=== PATIENT | male | born 1965 | race Caucasian/White ===

== ENCOUNTER → 2021-07-10 | Outpatient (CLI) | payer OTHER | LOC: HEART 5 11:10 | DX: R06.02 Shortness of breath (principal); R06.2 Wheezing; Z86.16 Personal history of COVID-19 | CPT/HCPCS: 94060; 94729 ==

== ENCOUNTER → 2021-08-20 | Outpatient (CLI) | payer OTHER | LOC: EXRD 10:46 | DX: I10 Essential (primary) hypertension (principal); I25.10 Atherosclerotic heart disease of native coronary artery without angina pectoris; E78.5 Hyperlipidemia, unspecified; Z00.00 Encounter for general adult medical examination without abnormal findings; Z13.21 Encounter for screening for nutritional disorder; M10.9 Gout, unspecified; E78.1 Pure hyperglyceridemia; R06.2 Wheezing | CPT/HCPCS: 71046 ==

== ENCOUNTER → 2021-09-23 | Outpatient (CLI) | payer OTHER | LOC: HEART 5 09-16 08:00 | DX: I25.10 Atherosclerotic heart disease of native coronary artery without angina pectoris (principal); R06.03 Acute respiratory distress; R06.2 Wheezing | CPT/HCPCS: 93306 ==

== ENCOUNTER → 2021-11-04 | Outpatient (CLI) | payer OTHER ==
[2021-11-04 14:07] LABS: BUN/CREATININE RATIO 13 (0-10)
== END ==
LOC: LAB 11:59
PROVIDERS: Internal Medicine Cardiovascular Disease
DX: I10 Essential (primary) hypertension (principal); E78.1 Pure hyperglyceridemia; E08.3 Diabetes mellitus due to underlying condition with ophthalmic complications
CPT/HCPCS: 36415; 80048; 83036

== ENCOUNTER → 2022-03-19 | Outpatient (CLI) | payer OTHER ==
[2022-03-20 08:12] LABS: PROSTATE SPECIFIC AG, SERUM 0.4 ng/mL (0.0-4.0); PSA, FREE 0.22 ng/mL
== END ==
LOC: LAB 11:34
PROVIDERS: Nurse Practitioner Family
DX: Z12.5 Encounter for screening for malignant neoplasm of prostate (principal); N52.9 Male erectile dysfunction, unspecified; E29.1 Testicular hypofunction; N40.0 Benign prostatic hyperplasia without lower urinary tract symptoms; R35.1 Nocturia
CPT/HCPCS: 36415; 84153; 84154; 84402; 84403